=== PATIENT | female | born 1960 | race Caucasian/White ===

== ENCOUNTER → 2018-12-24 | Outpatient (CLI) | payer OTHER ==
[~2018-12-24] MED LIST: ACEBUTOLOL HCL200 MG PO; ACTONEL150 MG PO; PERCOCET 5-3251 EACH PO
== END ==
LOC: CAT 07:00
DX: I71.2 Thoracic aortic aneurysm, without rupture (principal); I71.4 Abdominal aortic aneurysm, without rupture; I25.10 Atherosclerotic heart disease of native coronary artery without angina pectoris; Z79.899 Other long term (current) drug therapy